=== PATIENT | female | born 1995 | race African-American/Black ===

== ENCOUNTER 2024-07-25 13:52 | Emergency (ER) | payer SELFPAY ==
[2024-07-25 13:57] VITALS: BP 119/76; PULSE 99; RESP 19; TEMP 36.7; O2SAT 98
--- NOTE | 2024-07-25 14:08 | ED.SEIZURE ---
HPI - Seizure General Chief Complaint: Seizure Stated Complaint: seizure Time Seen by Provider: 07/25/24 13:55 History of Present Illness HPI Narrative: Patient was reportedly stealing merchandise from [employer] when she was about to be arrested by police, she started having seizure-like activity so they brought her to the emergency room here. She is denying any complaints, she does not want to be seen here. Reports history of seizures that she does not take medications for. Review of Systems Review of Systems: All systems reviewed & are unremarkable except as noted in HPI and below Exam Narrative: EXAMINATION OF ORGAN SYSTEMS/BODY AREAS: Constitutional: Vital signs per nursing GENERAL:[No acute distress, non-toxic appearing.] HEAD: Normal with no signs of head trauma. EYES: EOMI, conjunctiva normal ENT: Hearing grossly intact LUNGS: Nonlabored breathing. HEART: [Regular rate and rhythm] ABD: [Soft], [nontender to palpation] EXT: Normal range of motion SKIN: Signs of skin picking NEURO: [Alert and oriented x 3. No gross focal sensory or strength deficits.] Clear speech, ambulating with normal steady gait PSYCH: Normal affect Course Vital Signs Vital signs: Vital Signs Temperature 98.1 F 07/25/24 13:57 Pulse Rate 99 07/25/24 13:57 Respiratory Rate 19 07/25/24 13:57 Blood Pressure 119/76 07/25/24 13:57 Pulse Oximetry 98 07/25/24 13:57 Oxygen Delivery Room Air 07/25/24 13:57 Temperature 98.1 F 07/25/24 13:57 Pulse Rate 99 07/25/24 13:57 Respiratory Rate 19 07/25/24 13:57 Blood Pressure 119/76 07/25/24 13:57 Pulse Oximetry 98 07/25/24 13:57 Oxygen Delivery Room Air 07/25/24 13:57 MDM - Seizure MDM Narrative Medical decision making narrative: Patient was reportedly stealing merchandise from [employer] when she was about to be arrested by police, she started having seizure-like activity so they brought her here. She is completely back to baseline, denying any complaints, she does not want to be seen here. Reports history of seizures that she does not take medications for. I have high suspicion for possible pseudo-seizure especially since she has never been postictal. She is requesting discharge right now. A&O x4, making her own medical decisions, not acutely psychotic or suicidal, and I cannot hold her here against her will, she has no neurologic deficits and is speaking with clear speech ambulating with steady gait, she has follow-up to PCP for seizure medications. Discharge Plan Discharge Clinical Impression: Seizure-like activity Patient Disposition: Left Against Medical Advice Condition: Stable Additional Instructions: You had seizure-like activity today, but currently do not have any symptoms and do not want to be seen medically here. Please follow-up with your primary care doctor and if you change your mind, come back to the emergency room.
[2024-07-25 14:12] VITALS: BP 117/69; PULSE 77; RESP 16; TEMP 36.6; O2SAT 100
[2024-07-25 14:13] LABS: Glucose Point of Care 106 mg/dl (65-105)
== END 2024-07-25 14:14 | disposition left against medical advice (07) ==
LOC: ANHED 14:13
PROVIDERS: Emergency Provider Emergency Medicine
DX: R56.9 Unspecified convulsions (principal)
CPT/HCPCS: 82948; 99282